=== PATIENT | male | born 1935 | race Caucasian/White ===

== ENCOUNTER 2019-05-11 14:37 | Emergency (ER) | payer MEDICARE, MEDICAID ==
[~2019-05-11] VITALS: Ht 170.2 cm; Wt 55.3 kg
--- NOTE | 2019-05-11 14:44 | NUR ---
from home for abdominal pain, urine retension since yesterday. pt on hospice, given morphine 5mg [employer]. pt to bed 7, pt awake, alert, -sob, nad noted, vss, pending er provider cammy
[2019-05-11] MEDS ORDERED: LIDOCAINE 2% JEL UROJET 10 ML MM ONE ×2 (15:00→15:09)
[2019-05-11] MEDS ORDERED: HYDROMORPHONE 1 MG/1 ML DISP.SYRIN ONE (15:09)
[2019-05-11] MEDS ORDERED: HYDROMORPHONE 1 MG/1 ML DISP.SYRIN IM ONE (15:30)
[2019-05-11 15:45] VITALS: BP 111/79
--- NOTE | 2019-05-11 16:01 | NUR ---
CALLED [facility] FOR TRANSPORT TO RESIDENCE. ETA 1730.
--- NOTE | 2019-05-11 17:30 | NUR ---
called dr. lang to assess patient, unable to assess vital signs at this time. patient is dni/dnr comfort measure, hospice care.
--- NOTE | 2019-05-11 17:35 | NUR ---
dr. lang at bedside pronounced pt .
--- NOTE | 2019-05-11 17:48 | NUR ---
CALLED PRIMARY CARE DOCTOR GABINO. NO ANSWER LEFT MESSAGE.
--- NOTE | 2019-05-11 17:52 | NUR ---
FAMILY AT BEDSIDE; STATES THAT [facility] TAKES CARE OF THE PATIENT: Contact Information Agency: [facility] Address: [address] [place] [address], [address] [place] [id number] I CALLED AND LEFT A MESSAGE TO CALL ER AT [phone]
--- NOTE | 2019-05-11 17:58 | NUR ---
wendy called; spoke to vida ref#[id number]
--- NOTE | 2019-05-11 18:13 | NUR ---
[facility] STAFF - CALLED - THE PATIENT IS OFFICIALLY DC'D FROM HOSPICE AT 1300 TODAY. CASE DISCUSSED WITH THE FAMILY MEMBER (GRAND SON) AT BEDSIDE, WITNESSED BY THE NSG. DIRECTOR OF EDUCATION - ELBA KEE
--- NOTE | 2019-05-11 18:16 | NUR ---
RESIDENT PHYSICIAN IN RADIOLOGY CALLED - SPOKE WITH ELBA UGALDE - NOT A CORONERS CASE - THE PRIMARY WILL SIGN THE CERTFICATE INSTRUCTED BY THE RESIDENT PHYSICIAN IN RADIOLOGY.
--- NOTE | 2019-05-11 18:27 | NUR ---
wendy called spoke to pushpa; not a candidate
--- NOTE | 2019-05-11 19:25 | NUR ---
pt transported to [facility] accompanied by security
== END 2019-05-11 19:26 | disposition expired ==
LOC: ER 14:43
DX: C67.9 Malignant neoplasm of bladder, unspecified (principal); N19 Unspecified kidney failure; E86.0 Dehydration; Z51.5 Encounter for palliative care
CPT/HCPCS: 51702; 96372; 99285; J1170; J3490